=== PATIENT | male | born 1950 | race Caucasian/White ===

== ENCOUNTER 2018-08-28 14:38 | Emergency (ER) | payer MEDICARE ==
[2018-08-28 14:52] VITALS: RESP 18; TEMP 98.6
[2018-08-28] MEDS ORDERED: SODIUM CHLORIDE 0.9% 1,000 ML IV STA (15:02)
--- NOTE | 2018-08-28 15:03 | ED ---
Arrhythmia/Palpitations HPI - General Chief Complaint: Arrhythmia/Palpitations Stated Complaint: Hypertension, high heart rate Time Seen by Provider: 08/28/18 15:00 Source: patient, RN notes reviewed, old records reviewed Mode of arrival: ambulatory Limitations: no limitations - History of Present Illness Initial Comments: This is a 59-year-old male the ER for evaluation. Patient has no significant medical record he does take his vital signs multiple times on the daily once a day. Patient states recently his heart rate and blood pressure been increasing. Otherwise patient has no complaints takes no medications MD Complaint: palpitations -: days(s) Context: occurred during rest Arrhythmia History: atrial fibrillation Associated Symptoms: denies other symptoms - Related Data Home Medications Medication Instructions Recorded Confirmed Albuterol Inhaler [Ventolin Hfa 1 - 2 puff INHALATION RT-Q6H PRN 08/28/18 Inhaler] Cholecalciferol [Vitamin D3] 1,000 unit PO DAILY 08/28/18 08/28/18 Cyanocobalamin (Vitamin B-12) 1,000 mcg PO DAILY 08/28/18 08/28/18 [Vitamin B-12] Mometasone Furoate [Elocon] 1 applic TOPICAL DAILY PRN 08/28/18 08/28/18 Mometasone/Formoterol [Dulera 200 1 puff INHALATION RT-DAILY 08/28/18 08/28/18 Mcg/5 Mcg Inhaler] Omeprazole [PriLOSEC] 20 mg PO DAILY 08/28/18 08/28/18 Allergies Allergy/AdvReac Type Severity Reaction Status Date / Time cat dander Allergy Dyspnea Verified 08/28/18 16:19 dog dander Allergy Dyspnea Verified 08/28/18 16:19 Review of Systems ROS Statement: Those systems with pertinent positive or pertinent negative responses have been documented in the HPI. ROS Other: All systems not noted in ROS Statement are negative. Past Medical History Past Medical History: Asthma, GERD/Reflux Additional Past Medical History / Comment(s): barrets esophagus History of Any Multi-Drug Resistant Organisms: None Reported Past Surgical History: Hernia Repair Past Psychological History: No Psychological Hx Reported Smoking Status: Former smoker Past Alcohol Use History: None Reported Past Drug Use History: None Reported General Exam Limitations: no limitations General appearance: alert, in no apparent distress Head exam: Present: atraumatic, normocephalic, normal inspection Eye exam: Present: normal appearance, PERRL, EOMI. Absent: scleral icterus, conjunctival injection, periorbital swelling ENT exam: Present: normal exam, mucous membranes moist Neck exam: Present: normal inspection. Absent: tenderness, meningismus, lymphadenopathy Respiratory exam: Present: normal lung sounds bilaterally. Absent: respiratory distress, wheezes, rales, rhonchi, stridor Cardiovascular Exam: Present: regular rate, normal rhythm, normal heart sounds. Absent: systolic murmur, diastolic murmur, rubs, gallop, clicks GI/Abdominal exam: Present: soft, normal bowel sounds. Absent: distended, tenderness, guarding, rebound, rigid Extremities exam: Present: normal inspection, full ROM, normal capillary refill. Absent: tenderness, pedal edema, joint swelling, calf tenderness Back exam: Present: normal inspection Neurological exam: Present: alert, oriented X3, CN II-XII intact Psychiatric exam: Present: normal affect, normal mood Skin exam: Present: warm, dry, intact, normal color. Absent: rash Course Vital Signs 08/28/18 08/28/18 08/28/18 14:49 15:06 15:18 Temperature 98.6 F Pulse Rate 102 H Pulse Rate [ 86 Right Sitting Pulse Oximetery ] Respiratory 18 Rate Blood Pressure 194/85 O2 Sat by Pulse 97 90 L Oximetry 08/28/18 08/28/18 15:30 16:00 Temperature Pulse Rate 82 74 Pulse Rate [ Right Sitting Pulse Oximetery ] Respiratory 18 18 Rate Blood Pressure 187/94 135/83 O2 Sat by Pulse 97 96 Oximetry - Reevaluation(s) Reevaluation #1: 08/28/18 16:58 Medical record is reviewed, patient's outpatient blood pressures are reviewed Reevaluation #2: 08/28/18 16:58 Patient has no complaints, reassured, questions answered Medical Decision Making - Medical Decision Making 67 male with positive elevated heart rate elevated blood pressure home. Patient 's findings improved here in the emergency room with no intervention. Labwork is normal patient can be discharged home - Lab Data Result diagrams: 08/28/18 15:15 08/28/18 15:15 Lab Results 08/28/18 08/28/18 08/28/18 Range/Units 15:15 15:15 15:15 WBC 7.3 (3.8-10.6) k/uL RBC 4.88 (4.30-5.90) m/uL Hgb 14.5 (13.0-17.5) gm/dL Hct 44.5 (39.0-53.0) % MCV 91.3 (80.0-100.0) fL MCH 29.8 (25.0-35.0) pg MCHC 32.6 (31.0-37.0) g/dL RDW 13.0 (11.5-15.5) % Plt Count 229 (150-450) k/uL Neutrophils % 76 % Lymphocytes % 16 % Monocytes % 5 % Eosinophils % 1 % Basophils % 0 % Neutrophils # 5.5 (1.3-7.7) k/uL Lymphocytes # 1.1 (1.0-4.8) k/uL Monocytes # 0.4 (0-1.0) k/uL Eosinophils # 0.1 (0-0.7) k/uL Basophils # 0.0 (0-0.2) k/uL Sodium 141 (137-145) mmol/L Potassium 4.6 (3.5-5.1) mmol/L Chloride 108 H (98-107) mmol/L Carbon Dioxide 24 (22-30) mmol/L Anion Gap 9 mmol/L BUN 17 (9-20) mg/dL Creatinine 0.98 (0.66-1.25) mg/dL Est GFR (CKD-EPI)AfAm >90 (>60 ml/min/1.73 sqM) Est GFR (CKD-EPI)NonAf 80 (>60 ml/min/1.73 sqM) Glucose 121 H (74-99) mg/dL Calcium 10.0 (8.4-10.2) mg/dL Phosphorus 3.5 (2.5-4.5) mg/dL Magnesium 2.2 (1.6-2.3) mg/dL Total Bilirubin 0.6 (0.2-1.3) mg/dL AST 34 (17-59) U/L ALT 34 (21-72) U/L Alkaline Phosphatase 74 (38-126) U/L Total Creatine Kinase 305 H (55-170) U/L CK-MB (CK-2) 1.1 (0.0-2.4) ng/mL CK-MB (CK-2) Rel Index 0.4 Troponin I <0.012 (0.000-0.034) ng/mL Total Protein 7.8 (6.3-8.2) g/dL Albumin 4.6 (3.5-5.0) g/dL TSH 2.990 (0.465-4.680) mIU/L Disposition Clinical Impression: Tachycardia, Hypertension Disposition: HOME SELF-CARE Condition: Good Instructions (If sedation given, give patient instructions): Heart Palpitations (ED) Is patient prescribed a controlled substance at d/c from ED?: No Referrals: Hanna Kerr MD [Primary Care Provider] - 1-2 days
[2018-08-28 15:43] LABS: Basophils % (A) 0 %; Eosinophils # (A) 0.1 k/uL (0-0.7); Eosinophils % (A) 1 %; HCT 44.5 % (39.0-53.0); HGB 14.5 gm/dL (13.0-17.5); Lymphocytes # (A) 1.1 k/uL (1.0-4.8); Lymphocytes % (A) 16 %; MCH 29.8 pg (25.0-35.0); MCHC 32.6 g/dL (31.0-37.0); MCV 91.3 fL (80.0-100.0); Mean Platelet Volume 7.3; Monocytes # (A) 0.4 k/uL (0-1.0); Monocytes % (A) 5 %; Neutrophils # (A) 5.5 k/uL (1.3-7.7); Neutrophils % (A) 76 %; Platelet Count 229 k/uL (150-450); RBC 4.88 m/uL (4.30-5.90); WBC 7.3 k/uL (3.8-10.6)
[2018-08-28 15:51] LABS: ALT 34 U/L (21-72); AST 34 U/L (17-59); Albumin 4.6 g/dL (3.5-5.0); Alkaline Phosphatase 74 U/L (38-126); Anion Gap 9 mmol/L; Blood Urea Nitrogen 17 mg/dL (9-20); Carbon Dioxide 24 mmol/L (22-30); Chloride 108 mmol/L (98-107); Glucose 121 mg/dL (74-99); Magnesium 2.2 mg/dL (1.6-2.3); Phosphorus 3.5 mg/dL (2.5-4.5); Potassium 4.6 mmol/L (3.5-5.1); Sodium 141 mmol/L (137-145); Total Bilirubin 0.6 mg/dL (0.2-1.3); Total Protein 7.8 g/dL (6.3-8.2)
[2018-08-28 15:56] LABS: Creatine Kinase 305 U/L (55-170)
[2018-08-28 16:09] LABS: Creatine Kinase MB 1.1 ng/mL (0.0-2.4); Troponin I <0.012 ng/mL (0.000-0.034)
[2018-08-28 16:58] LABS: Appearance,Urine Clear (Clear); Bilirubin,Urine Negative (Negative); Blood,Urine Small (Negative); Color,Urine Light Yellow; Glucose,Urine (UA) Negative (Negative); Ketones,Urine Negative (Negative); Leukocyte Esterase,Urine Negative (Negative); Mucus,Urine Rare /hpf; Nitrite,Urine Negative (Negative); Protein,Urine Negative (Negative); RBC,Urine 3 /hpf (0-5); Specific Gravity,Urine 1.013 (1.001-1.035); Urobilinogen,Urine <2.0 mg/dL (<2.0); WBC,Urine <1 /hpf (0-5)
[2018-08-28 17:32] VITALS: BP 167/89; PULSE 67
== END 2018-08-28 17:30 | disposition home or self-care (01) ==
LOC: EC 14:38
DX: I10 Essential (primary) hypertension (principal); R00.0 Tachycardia, unspecified; J45.909 Unspecified asthma, uncomplicated; K21.9 Gastro-esophageal reflux disease without esophagitis; Z87.891 Personal history of nicotine dependence; Z86.79 Personal history of other diseases of the circulatory system; Z98.890 Other specified postprocedural states; Z79.51 Long term (current) use of inhaled steroids; Z79.899 Other long term (current) drug therapy; Z91.048 Other nonmedicinal substance allergy status
CPT/HCPCS: 36415; 80053; 81001; 82550; 82553; 83735; 84100; 84443; 84484; 85025; 93005; 96360; 99285

== ENCOUNTER 2018-09-11 14:04 | Observation (INO) | payer MEDICARE ==
[2018-09-11 14:56] LABS: Basophils % (A) 0 %; Eosinophils # (A) 0.1 k/uL (0-0.7); Eosinophils % (A) 1 %; HGB 14.3 gm/dL (13.0-17.5); Lymphocytes # (A) 0.9 k/uL (1.0-4.8); Lymphocytes % (A) 12 %; MCH 29.6 pg (25.0-35.0); MCHC 32.5 g/dL (31.0-37.0); MCV 91.1 fL (80.0-100.0); Mean Platelet Volume 6.9; Monocytes # (A) 0.4 k/uL (0-1.0); Monocytes % (A) 5 %; Neutrophils # (A) 6.3 k/uL (1.3-7.7); Neutrophils % (A) 81 %; Platelet Count 232 k/uL (150-450); RBC 4.83 m/uL (4.30-5.90); WBC 7.8 k/uL (3.8-10.6)
[2018-09-11 15:06] LABS: ALT 31 U/L (21-72); AST 33 U/L (17-59); Albumin 4.4 g/dL (3.5-5.0); Alkaline Phosphatase 70 U/L (38-126); Anion Gap 10 mmol/L; Blood Urea Nitrogen 18 mg/dL (9-20); Calcium 9.9 mg/dL (8.4-10.2); Carbon Dioxide 23 mmol/L (22-30); Chloride 108 mmol/L (98-107); Glucose 143 mg/dL (74-99); Partial Thromboplastin Time 23.3 sec (22.0-30.0); Potassium 4.3 mmol/L (3.5-5.1); Prothrombin Time 10.3 sec (9.0-12.0); Sodium 141 mmol/L (137-145); Total Bilirubin 0.5 mg/dL (0.2-1.3); Total Protein 7.7 g/dL (6.3-8.2)
[2018-09-11 15:16] LABS: Creatine Kinase 260 U/L (55-170)
[2018-09-11 15:29] LABS: Troponin I <0.012 ng/mL (0.000-0.034)
[2018-09-11] MEDS ORDERED: hydrALAZINE HCL 20 MG/ML 1 ML VIAL IVP STA (15:37)
--- NOTE | 2018-09-11 16:04 | XR ---
EXAMINATION TYPE: XR chest 2V DATE OF EXAM: 09/11/2018 COMPARISON: NONE HISTORY: Shortness of breath TECHNIQUE: Frontal and lateral views of the chest are obtained. FINDINGS: Scattered senescent parenchymal changes noted. Hyperinflation compatible with COPD. No evidence for infiltrate. No evidence for atelectasis. Heart size is stable. Mediastinal structures are stable and grossly unremarkable. No evidence for hilar prominence. Degenerative changes dorsal spine. IMPRESSION: 1. No evidence for acute pulmonary disease.
--- NOTE | 2018-09-11 16:35 | ED ---
General Adult HPI - General Source: patient, RN notes reviewed, old records reviewed Mode of arrival: wheelchair Limitations: no limitations <Padmini Niño - Last Filed: 09/11/18 16:38> <Flash Finnegan - Last Filed: 09/11/18 17:47> - General Chief complaint: Arrhythmia/Palpitations Stated complaint: High heart rate Time Seen by Provider: 09/11/18 14:59 - History of Present Illness Initial comments: Patient is a 59-year-old male who presents emergency department today with complaints of chest discomfort upper arm discomfort and high heart rate. He also reports she's had a labile blood pressure. Blood pressure at home has been 210/97. He states that he discovered that discomfort across his chest today. He does report increased fatigue as well. Patient states that he has not seen a crocheter hand in the past. He has no history of hypertension. Patient denies any recent fever, chills, shortness of breath, back pain, abdominal pain, nausea vomiting, numbness or tingling, dysuria or hematuria, constipation or diarrhea, headaches or visual changes, or any other current symptoms (Padmini Niño) - Related Data Home Medications Medication Instructions Recorded Confirmed Albuterol Inhaler [Ventolin Hfa 1 - 2 puff INHALATION RT-Q6H PRN 08/28/18 Inhaler] Cholecalciferol [Vitamin D3] 1,000 unit PO DAILY 08/28/18 09/11/18 Cyanocobalamin (Vitamin B-12) 1,000 mcg PO DAILY 08/28/18 09/11/18 [Vitamin B-12] Mometasone Furoate [Elocon] 1 applic TOPICAL DAILY PRN 08/28/18 09/11/18 Mometasone/Formoterol [Dulera 200 1 puff INHALATION RT-DAILY 08/28/18 09/11/18 Mcg/5 Mcg Inhaler] Omeprazole [PriLOSEC] 20 mg PO DAILY 08/28/18 09/11/18 Calcium Carbonate [Tums] 500 mg PO QID PRN 09/11/18 09/11/18 EPINEPHrine [Epipen 2-Jed] 0.3 mg IM ONCE PRN 09/11/18 09/11/18 Ibuprofen [Advil] 200 mg PO Q6HR PRN 09/11/18 09/11/18 Allergies Allergy/AdvReac Type Severity Reaction Status Date / Time cat dander Allergy Dyspnea Verified 09/11/18 14:40 dog dander Allergy Dyspnea Verified 09/11/18 14:40 Review of Systems ROS Other: All systems not noted in ROS Statement are negative. <Padmini Niño - Last Filed: 09/11/18 16:38> ROS Other: All systems not noted in ROS Statement are negative. <Flash Finnegan - Last Filed: 09/11/18 17:47> ROS Statement: Those systems with pertinent positive or pertinent negative responses have been documented in the HPI. 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 History of Any Multi-Drug Resistant Organisms: None Reported Past Surgical History: Hernia Repair Past Psychological History: No Psychological Hx Reported Smoking Status: Former smoker Past Alcohol Use History: None Reported Past Drug Use History: None Reported <Padmini Niño - Last Filed: 09/11/18 16:38> General Exam Limitations: no limitations General appearance: alert, in no apparent distress Head exam: Present: atraumatic, normocephalic, normal inspection Eye exam: Present: normal appearance, PERRL, EOMI. Absent: scleral icterus, conjunctival injection, periorbital swelling ENT exam: Present: normal exam, mucous membranes moist Neck exam: Present: normal inspection. Absent: tenderness, meningismus, lymphadenopathy Respiratory exam: Present: normal lung sounds bilaterally. Absent: respiratory distress, wheezes, rales, rhonchi, stridor Cardiovascular Exam: Present: regular rate, normal rhythm, normal heart sounds. Absent: systolic murmur, diastolic murmur, rubs, gallop, clicks GI/Abdominal exam: Present: soft, normal bowel sounds. Absent: distended, tenderness, guarding, rebound, rigid Extremities exam: Present: normal inspection, full ROM, normal capillary refill. Absent: tenderness, pedal edema, joint swelling, calf tenderness Back exam: Present: normal inspection Neurological exam: Present: alert, oriented X3, CN II-XII intact Psychiatric exam: Present: normal affect, normal mood Skin exam: Present: warm, dry, intact, normal color. Absent: rash <Padmini Niño - Last Filed: 09/11/18 16:38> <Flash Finnegan - Last Filed: 09/11/18 17:47> - General Exam Comments Initial Comments: This Patient is a 59-year-old male. Alert and oriented 3. No significant distress. (Padmini Niño) Course <Padmini Niño - Last Filed: 09/11/18 16:38> <Flash Finnegan - Last Filed: 09/11/18 17:47> Vital Signs 09/11/18 09/11/18 09/11/18 14:08 14:32 15:24 Temperature 98.5 F Pulse Rate 109 H 89 Pulse Rate [ 104 H Wide Load Escort ] Respiratory 18 18 Rate Blood Pressure 181/94 161/93 O2 Sat by Pulse 99 96 Oximetry 09/11/18 09/11/18 16:07 16:53 Temperature Pulse Rate 82 100 Pulse Rate [ Wide Load Escort ] Respiratory 18 18 Rate Blood Pressure 151/85 146/93 O2 Sat by Pulse 98 97 Oximetry - Reevaluation(s) Reevaluation #1: 09/11/18 17:46 PA supervision: I proceeded [id number] evaluation the patient discuss findings patient does demonstrate evidence of hypertension he also has chest pain with no prior history of CAD. Initial cardiac enzymes are within normal limits. Patient is going to be admitted for inpatient evaluation. The case is discussed with Dr. Villasenor. I do agree with the assessment and plan. (Flash Finnegan) Medical Decision Making - Lab Data Result diagrams: 09/11/18 14:34 09/11/18 14:34 - Radiology Data Radiology results: report reviewed <Padmini Niño - Last Filed: 09/11/18 16:38> - Lab Data Result diagrams: 09/11/18 14:34 09/11/18 14:34 <Flash Finnegan - Last Filed: 09/11/18 17:47> - Medical Decision Making 59-year-old male presents return today with concerns for hypertension. He is had an episode similar to this 2 weeks ago. He is also reports that he's had episodes of chest discomfort today. The sinus EKG was performed that shows a ST and amount in lead 3. Patient's troponin test is negative. Dimer is negative. There are since labwork is unremarkable. Patient's blood pressure upon arrival was elevated. However and blood pressure came down on its own without any medical intervention. At this time Patient is concerned due to his chest discomfort and I discussed that can admit the Patient for cardiac evaluation. Patient is given aspirin. (Padmini Niño) - Lab Data Lab Results 09/11/18 09/11/18 09/11/18 Range/Units 14:34 14:34 14:34 WBC 7.8 (3.8-10.6) k/uL RBC 4.83 (4.30-5.90) m/uL Hgb 14.3 (13.0-17.5) gm/dL Hct 44.0 (39.0-53.0) % MCV 91.1 (80.0-100.0) fL MCH 29.6 (25.0-35.0) pg MCHC 32.5 (31.0-37.0) g/dL RDW 13.0 (11.5-15.5) % Plt Count 232 (150-450) k/uL Neutrophils % 81 % Lymphocytes % 12 % Monocytes % 5 % Eosinophils % 1 % Basophils % 0 % Neutrophils # 6.3 (1.3-7.7) k/uL Lymphocytes # 0.9 L (1.0-4.8) k/uL Monocytes # 0.4 (0-1.0) k/uL Eosinophils # 0.1 (0-0.7) k/uL Basophils # 0.0 (0-0.2) k/uL PT (9.0-12.0) sec INR (<1.2) APTT (22.0-30.0) sec D-Dimer (<0.60) mg/L FEU Sodium 141 (137-145) mmol/L Potassium 4.3 (3.5-5.1) mmol/L Chloride 108 H (98-107) mmol/L Carbon Dioxide 23 (22-30) mmol/L Anion Gap 10 mmol/L BUN 18 (9-20) mg/dL Creatinine 0.93 (0.66-1.25) mg/dL Est GFR (CKD-EPI)AfAm >90 (>60 ml/min/1.73 sqM) Est GFR (CKD-EPI)NonAf 84 (>60 ml/min/1.73 sqM) Glucose 143 H (74-99) mg/dL Calcium 9.9 (8.4-10.2) mg/dL Total Bilirubin 0.5 (0.2-1.3) mg/dL AST 33 (17-59) U/L ALT 31 (21-72) U/L Alkaline Phosphatase 70 (38-126) U/L Total Creatine Kinase 260 H (55-170) U/L CK-MB (CK-2) 1.0 (0.0-2.4) ng/mL CK-MB (CK-2) Rel Index 0.4 Troponin I <0.012 (0.000-0.034) ng/mL Total Protein 7.7 (6.3-8.2) g/dL Albumin 4.4 (3.5-5.0) g/dL Urine Color Urine Appearance (Clear) Urine pH (5.0-8.0) Ur Specific [place] (1.001-1.035) Urine Protein (Negative) Urine Glucose (UA) (Negative) Urine Ketones (Negative) Urine Blood (Negative) Urine Nitrite (Negative) Urine Bilirubin (Negative) Urine Urobilinogen (<2.0) mg/dL Ur Leukocyte Esterase (Negative) Urine RBC (0-5) /hpf Urine WBC (0-5) /hpf Urine Mucus (None) /hpf 09/11/18 09/11/18 09/11/18 Range/Units 14:34 14:34 16:03 WBC (3.8-10.6) k/uL RBC (4.30-5.90) m/uL Hgb (13.0-17.5) gm/dL Hct (39.0-53.0) % MCV (80.0-100.0) fL MCH (25.0-35.0) pg MCHC (31.0-37.0) g/dL RDW (11.5-15.5) % Plt Count (150-450) k/uL Neutrophils % % Lymphocytes % % Monocytes % % Eosinophils % % Basophils % % Neutrophils # (1.3-7.7) k/uL Lymphocytes # (1.0-4.8) k/uL Monocytes # (0-1.0) k/uL Eosinophils # (0-0.7) k/uL Basophils # (0-0.2) k/uL PT 10.3 (9.0-12.0) sec INR 1.0 (<1.2) APTT 23.3 (22.0-30.0) sec D-Dimer 0.23 (<0.60) mg/L FEU Sodium (137-145) mmol/L Potassium (3.5-5.1) mmol/L Chloride (98-107) mmol/L Carbon Dioxide (22-30) mmol/L Anion Gap mmol/L BUN (9-20) mg/dL Creatinine (0.66-1.25) mg/dL Est GFR (CKD-EPI)AfAm (>60 ml/min/1.73 sqM) Est GFR (CKD-EPI)NonAf (>60 ml/min/1.73 sqM) Glucose (74-99) mg/dL Calcium (8.4-10.2) mg/dL Total Bilirubin (0.2-1.3) mg/dL AST (17-59) U/L ALT (21-72) U/L Alkaline Phosphatase (38-126) U/L Total Creatine Kinase (55-170) U/L CK-MB (CK-2) (0.0-2.4) ng/mL CK-MB (CK-2) Rel Index Troponin I (0.000-0.034) ng/mL Total Protein (6.3-8.2) g/dL Albumin (3.5-5.0) g/dL Urine Color Light Yellow Urine Appearance Clear (Clear) Urine pH 6.5 (5.0-8.0) Ur Specific [place] 1.012 (1.001-1.035) Urine Protein Negative (Negative) Urine Glucose (UA) Negative (Negative) Urine Ketones Negative (Negative) Urine Blood Small H (Negative) Urine Nitrite Negative (Negative) Urine Bilirubin Negative (Negative) Urine Urobilinogen <2.0 (<2.0) mg/dL Ur Leukocyte Esterase Negative (Negative) Urine RBC 2 (0-5) /hpf Urine WBC 1 (0-5) /hpf Urine Mucus Rare H (None) /hpf 09/11/18 16:40 EKG performed at 1435 to sinus tachycardia, nonspecific ST abnormality. Abnormal EKG noted. Ventricular rate of 108 bpm. NV interval 160 ms. QRS duration is 90 ms. QT QTc is 324/434 ms. (Padmini Niño) - Radiology Data Chest x-ray is negative for any acute cardio pulmonary disease. (Padmini Niño ) Disposition Is patient prescribed a controlled substance at d/c from ED?: No Time of Disposition: 16:42 <Padmini Niño - Last Filed: 09/11/18 16:38> <Flash Finnegan - Last Filed: 09/11/18 17:47> Clinical Impression: Hypertension, Tachycardia, Chest pain Disposition: ADMITTED IP TO THIS HOSP Condition: Stable Referrals: Hanna Kerr MD [Primary Care Provider] - 1-2 days
[2018-09-11] MEDS ORDERED: ASPIRIN 81 MG PO STA (16:43)
[2018-09-11] MEDS ORDERED: NITROGLYCERIN SL TABS 0.4 MG TAB SUBLINGUAL PRN (16:43)
[2018-09-11 16:50] LABS: Appearance,Urine Clear (Clear); Bilirubin,Urine Negative (Negative); Blood,Urine Small (Negative); Color,Urine Light Yellow; Glucose,Urine (UA) Negative (Negative); Ketones,Urine Negative (Negative); Leukocyte Esterase,Urine Negative (Negative); Mucus,Urine Rare /hpf; Nitrite,Urine Negative (Negative); PH, Urine 6.5 (5.0-8.0); Protein,Urine Negative (Negative); RBC,Urine 2 /hpf (0-5); Specific Gravity,Urine 1.012 (1.001-1.035); Urobilinogen,Urine <2.0 mg/dL (<2.0); WBC,Urine 1 /hpf (0-5)
[2018-09-11] MEDS ORDERED: TRIAMCINOLONE 0.1% CREAM 80 GM TUBE TOPICAL PRN (18:05)
[2018-09-11] MEDS ORDERED: ALBUTEROL NEBULIZED 2.5 MG/3 ML INHALATION PRN (18:05)
[2018-09-11] MEDS ORDERED: IBUPROFEN 200 MG TAB PO PRN (18:05)
[2018-09-11] MEDS ORDERED: EPINEPHrine 1 MG/ML 1 ML AMP IM PRN (18:05)
--- NOTE | 2018-09-11 18:11 | P.HPIM ---
History of Present Illness 59-year-old gentleman came in because of his elevated blood pressures he checks his blood pressure and it was 210/97. Lately his blood pressure has been going up he attributes it to his pneumococcal vaccine. Before that vaccine his blood pressure is always around 120 systolic. An not diagnosed with essential hypertension in the past. Lately his blood pressure has been going up. Patient was also complaining of vague chest pain across the chest because of which the emergency room requested me to admit the patient although the chest pain is not related to her blood pressure and patient blood pressure ranged here from 180 systolic to 140 systolic because of which I do not believe he has essential hypertension yet patient will be monitored here overnight and if patient blood pressure is consistently elevated above 140 systolic patient will be started on medications most probably COREY inhibitor at that time. Regarding the chest pain patient chest pain is only brief not associated diaphoresis or shortness of breath lightheadedness across the chest area he believes it's like a slow skeletal. Review of Systems REVIEW OF SYSTEMS: CONSTITUTIONAL: No fever, no malaise, no fatigue. HEENT: No recent visual problems or hearing problems. Denied any sore throat. CARDIOVASCULAR: No orthopnea, PND, no palpitations, no syncope. PULMONARY: No shortness of breath, no cough, no hemoptysis. GASTROINTESTINAL: No diarrhea, no nausea, no vomiting, no abdominal pain. NEUROLOGICAL: No headaches, no weakness, no numbness. HEMATOLOGICAL: Denies any bleeding or petechiae. GENITOURINARY: Denies any burning micturition, frequency, or urgency. MUSCULOSKELETAL/RHEUMATOLOGICAL: Denies any joint pain, swelling, or any muscle pain. ENDOCRINE: Denies any polyuria or polydipsia. The rest of the 14-point review of systems is negative. 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 History of Any Multi-Drug Resistant Organisms: None Reported Past Surgical History: Hernia Repair Past Psychological History: No Psychological Hx Reported Smoking Status: Former smoker Past Alcohol Use History: None Reported Past Drug Use History: None Reported Medications and Allergies Home Medications Medication Instructions Recorded Confirmed Type Albuterol Inhaler [Ventolin Hfa 1 - 2 puff INHALATION RT-Q6H PRN 08/28/18 History Inhaler] Cholecalciferol [Vitamin D3] 1,000 unit PO DAILY 08/28/18 09/11/18 History Cyanocobalamin (Vitamin B-12) 1,000 mcg PO DAILY 08/28/18 09/11/18 History [Vitamin B-12] Mometasone Furoate [Elocon] 1 applic TOPICAL DAILY PRN 08/28/18 09/11/18 History Mometasone/Formoterol [Dulera 200 1 puff INHALATION RT-DAILY 08/28/18 09/11/18 History Mcg/5 Mcg Inhaler] Omeprazole [PriLOSEC] 20 mg PO DAILY 08/28/18 09/11/18 History Calcium Carbonate [Tums] 500 mg PO QID PRN 09/11/18 09/11/18 History EPINEPHrine [Epipen 2-Jed] 0.3 mg IM ONCE PRN 09/11/18 09/11/18 History Ibuprofen [Advil] 200 mg PO Q6HR PRN 09/11/18 09/11/18 History Allergies Allergy/AdvReac Type Severity Reaction Status Date / Time cat dander Allergy Dyspnea Verified 09/11/18 14:40 dog dander Allergy Dyspnea Verified 09/11/18 14:40 Physical Exam Vitals: Vital Signs Temp Pulse Pulse Resp BP Pulse Ox 09/11/18 16:53 100 18 146/93 97 09/11/18 16:07 82 18 151/85 98 09/11/18 15:24 89 18 161/93 96 09/11/18 14:32 104 H 09/11/18 14:08 98.5 F 109 H 18 181/94 99 Intake and Output 09/11/18 09/11/18 09/11/18 06:59 14:59 22:59 Other: Weight 74.843 kg PHYSICAL EXAMINATION: GENERAL: The patient is alert and oriented x3, not in any acute distress. Well developed, well nourished. HEENT: Pupils are round and equally reacting to light. EOMI. No scleral icterus. No conjunctival pallor. Normocephalic, atraumatic. No pharyngeal erythema. No thyromegaly. CARDIOVASCULAR: S1 and S2 present. No murmurs, rubs, or gallops. PULMONARY: Chest is clear to auscultation, no wheezing or crackles. ABDOMEN: Soft, nontender, nondistended, normoactive bowel sounds. No palpable organomegaly. MUSCULOSKELETAL: No joint swelling or deformity. EXTREMITIES: No cyanosis, clubbing, or pedal edema. NEUROLOGICAL: Gross neurological examination did not reveal any focal deficits. SKIN: No rashes. Results CBC & Chem 7: 09/11/18 14:34 09/11/18 14:34 Labs: Abnormal Lab Results - Last 24 Hours (Table) 09/11/18 09/11/18 09/11/18 Range/Units 14:34 14:34 14:34 Lymphocytes # 0.9 L (1.0-4.8) k/uL Chloride 108 H (98-107) mmol/L Glucose 143 H (74-99) mg/dL Total Creatine Kinase 260 H (55-170) U/L Urine Blood (Negative) Urine Mucus (None) /hpf 09/11/18 Range/Units 16:03 Lymphocytes # (1.0-4.8) k/uL Chloride (98-107) mmol/L Glucose (74-99) mg/dL Total Creatine Kinase (55-170) U/L Urine Blood Small H (Negative) Urine Mucus Rare H (None) /hpf Assessment and Plan Plan: -Chest pain we'll rule out a concurrent syndromes, unstable angina patient EKG showed sinus tachycardia without any acute ST-T wave changes. Patient will be monitored overnight area -Elevated blood pressure: Cannot make diagnosis of essential hypertension yet as his blood pressure once is 140 systolic. The patient the blood pressures consistently above 140 systolic or 85 diastolic then patient was started on antihypertensive medications at the time. As of now will just monitor. -Sinus tachycardia appears to be secondary to his anxiety, will obtain TSH level his d-dimer is negative -Asthma without any acute exacerbation resume his inhaled steroids and [place] as needed -Gastroesophageal reflux disease
[2018-09-11 22:11] LABS: Creatine Kinase 227 U/L (55-170)
[2018-09-11 22:25] LABS: Creatine Kinase MB 0.9 ng/mL (0.0-2.4); Troponin I <0.012 ng/mL (0.000-0.034)
[2018-09-12 03:24] LABS: Cholesterol 153 mg/dL (<200); HDL Cholesterol 56 mg/dL (40-60); LDL Cholesterol,Calculated 83 mg/dL (0-99); Triglycerides 70 mg/dL (<150)
[2018-09-12 03:30] LABS: Creatine Kinase 204 U/L (55-170)
[2018-09-12 03:44] LABS: Creatine Kinase MB 0.7 ng/mL (0.0-2.4); Troponin I <0.012 ng/mL (0.000-0.034)
[2018-09-12] MEDS ORDERED: PANTOPRAZOLE 40 MG TABLET PO SCH (07:30)
[2018-09-12 07:38] VITALS: RESP 18
[2018-09-12] MEDS ORDERED: SYMBICORT 160-4.5 MCG INHALER INHALATION SCH (08:00)
[2018-09-12] MEDS ORDERED: ASPIRIN 325 MG TAB PO SCH (09:00)
[2018-09-12] MEDS ORDERED: LISINOPRIL 10 MG TAB PO SCH (10:00)
--- NOTE | 2018-09-12 10:01 | P.CRDCN ---
History of Present Illness History of present illness: This is a pleasant 67-year-old male past medical history significant for nelson's esophagus, asthma and gastroesophageal reflux disease. He denies history of coronary artery disease, hypertension or dyslipidemia. We have been asked to see him in consultation for chest pain and hypertension. He states he has been monitoring his blood pressure daily for some time now and keeping a record. Over the last month his blood pressures have been elevated along with his heart rate. His blood pressure logs were reviewed and reveal readings of 140 's up to 200's systolic at times. He checked it yesterday at home and it was 207 /110. All day he has been feeling generally unwell and tired. He then started feeling a pain in his chest from right axilla to left axilla described as a tightening. He then started having a headache posteriorly at the base of his neck. Upon arrival to ED his blood pressure was 181/94 with a heart rate of 109. He is seen and examined resting comfortably in bed in no acute distress. He denies any further symptoms of chest discomfort. He indicates he underwent a stress test in 2017 that he states was normal. Records currently unavailable. EKG reveals sinus tachycardia with no acute ST or T wave abnormalities noted. Chest x-ray is negative for an acute cardiopulmonary process. Evidence of hyperinflation suggestive of COPD. Laboratory data reviewed, WBC 7.8, hemoglobin 14.3, platelets 232, d-dimer 0.23 , sodium 141, potassium 4.3, creatinine 0.93, cardiac enzymes negative 3, TSH 3.4, LDL 83 and HDL 56. He takes no daily cardiac medications. At the time of my exam: CONSTITUTIONAL: Denies fever. Denies chills. EYES: Denies blurred vision. Denies vision changes. Denies eye pain. EARS, NOSE, MOUTH & THROAT: Denies headache. Denies sore throat. Denies ear pain. CARDIOVASCULAR: Denies chest pain. Denies shortness of breath. Denies orthopnea. Denies PND. Denies palpitations. RESPIRATORY: Denies cough. GASTROINTESTINAL: Denies abdominal pain. Denies diarrhea. Denies constipation. Denies nausea. Denies vomiting. MUSCULOSKELETAL: Denies myalgias. INTEGUMENTARY: Denies pruitis. Denies rash. NEUROLOGIC: Denies numbness. Denies tingling. Denies weakness. PSYCHIATRIC: Denies anxiety. Denies depression. ENDOCRINE: Denies fatigue. Denies weight change. Denies polydipsia. Denies polyurina. GENITOURINARY: Denies burning, hematuria or urgency with micturation. HEMATOLOGIC: Denies history of anemia. Denies bleeding. Blood pressure 146/82 heart rate 70 afebrile maintaining oxygen saturation on room air GENERAL: This is a 67-year-old male in no apparent distress at the time of my examination. HEENT: Head is atraumatic, normocephalic. Pupils are equal, round. Sclerae anicteric. Conjunctivae are clear. Mucous membranes of the mouth are moist. Neck is supple. There is no jugular venous distention. No carotid bruit is heard. LUNGS: Clear to auscultation no wheezes, rales or rhonchi. No chest wall tenderness is noted on palpation or with deep breathing. HEART: Regular rate and rhythm without murmurs, rubs or gallops. S1 and S2 heard. ABDOMEN: Soft, nontender. Bowel sounds are heard. No organomegaly noted. EXTREMITIES: No evidence of peripheral edema and no calf tenderness noted. VASCULAR: Radial and dorsalis pedis pulses palpated, no evidence of clubbing. NEUROLOGIC: Patient is awake, alert and oriented x3. ASSESSMENT Chest pain, atypical for angina. An acute event has been ruled out. Hypertension, new onset Asthma PLAN Obtain 2-D echocardiogram and Doppler study to assess cardiac structure and function. Initiate the patient on lisinopril 10 mg twice a day first dose now. May consider adding amlodipine 10 mg daily if his blood pressure is not controlled on lisinopril. We will recommend stress testing as an outpatient once his blood pressure is controlled. Thank you kindly for this consultation. The above impression and plan of care have been discussed and directed by the signing physician. Caitlyn Devine, nurse practitioner, acting as scribe for signing physician. 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 History of Any Multi-Drug Resistant Organisms: None Reported Past Surgical History: Hernia Repair Past Anesthesia/Blood Transfusion Reactions: No Reported Reaction Smoking Status: Former smoker - Past Family History Father Family Medical History: Coronary Artery Disease (CAD) Additional Family Medical History / Comment(s): twisted bowel surg, circulation issues Mother Family Medical History: Cancer, Hypertension Additional Family Medical History / Comment(s): skin ca Medications and Allergies Home Medications Medication Instructions Recorded Confirmed Type Albuterol Inhaler [Ventolin Hfa 1 - 2 puff INHALATION RT-Q6H PRN 08/28/18 History Inhaler] Cholecalciferol [Vitamin D3] 1,000 unit PO DAILY 08/28/18 09/11/18 History Cyanocobalamin (Vitamin B-12) 1,000 mcg PO DAILY 08/28/18 09/11/18 History [Vitamin B-12] Mometasone Furoate [Elocon] 1 applic TOPICAL DAILY PRN 08/28/18 09/11/18 History Mometasone/Formoterol [Dulera 200 1 puff INHALATION RT-DAILY 08/28/18 09/11/18 History Mcg/5 Mcg Inhaler] Omeprazole [PriLOSEC] 20 mg PO DAILY 08/28/18 09/11/18 History Calcium Carbonate [Tums] 500 mg PO QID PRN 09/11/18 09/11/18 History EPINEPHrine [Epipen 2-Jed] 0.3 mg IM ONCE PRN 09/11/18 09/11/18 History Ibuprofen [Advil] 200 mg PO Q6HR PRN 09/11/18 09/11/18 History Allergies Allergy/AdvReac Type Severity Reaction Status Date / Time cat dander Allergy Dyspnea Verified 09/11/18 20:36 dog dander Allergy Dyspnea Verified 09/11/18 20:36 Physical Exam Vitals: Vital Signs Temp Pulse Pulse Pulse Resp BP BP 09/12/18 07:15 98.2 F 70 18 146/82 09/12/18 03:55 98.2 F 69 16 123/75 09/12/18 03:21 16 09/12/18 00:00 16 09/11/18 23:53 97.9 F 60 16 141/76 09/11/18 20:00 16 09/11/18 19:54 98.1 F 73 16 167/95 09/11/18 18:41 98.5 F 76 18 164/96 09/11/18 16:53 100 18 146/93 09/11/18 16:07 82 18 151/85 09/11/18 15:24 89 18 161/93 09/11/18 14:32 104 H 09/11/18 14:08 98.5 F 109 H 18 181/94 Pulse Ox 09/12/18 07:15 97 09/12/18 03:55 98 09/12/18 03:21 09/12/18 00:00 09/11/18 23:53 98 09/11/18 20:00 09/11/18 19:54 97 09/11/18 18:41 98 09/11/18 16:53 97 09/11/18 16:07 98 09/11/18 15:24 96 09/11/18 14:32 09/11/18 14:08 99 Intake and Output 09/11/18 09/12/18 09/12/18 22:59 06:59 14:59 Other: # Voids 1 Weight 75.3 kg Results 09/11/18 14:34 09/11/18 14:34 Cardiac Enzymes 09/11/18 09/11/18 09/11/18 Range/Units 14:34 14:34 20:58 AST 33 (17-59) U/L CK-MB (CK-2) 1.0 0.9 (0.0-2.4) ng/mL Troponin I <0.012 <0.012 (0.000-0.034) ng/mL 09/12/18 Range/Units 02:40 AST (17-59) U/L CK-MB (CK-2) 0.7 (0.0-2.4) ng/mL Troponin I <0.012 (0.000-0.034) ng/mL Coagulation 09/11/18 Range/Units 14:34 PT 10.3 (9.0-12.0) sec APTT 23.3 (22.0-30.0) sec Lipids 09/12/18 Range/Units 02:40 Triglycerides 70 (<150) mg/dL Cholesterol 153 (<200) mg/dL HDL Cholesterol 56 (40-60) mg/dL CBC 09/11/18 Range/Units 14:34 WBC 7.8 (3.8-10.6) k/uL RBC 4.83 (4.30-5.90) m/uL Hgb 14.3 (13.0-17.5) gm/dL Hct 44.0 (39.0-53.0) % Plt Count 232 (150-450) k/uL Comprehensive Metabolic Panel 09/11/18 Range/Units 14:34 Sodium 141 (137-145) mmol/L Potassium 4.3 (3.5-5.1) mmol/L Chloride 108 H (98-107) mmol/L Carbon Dioxide 23 (22-30) mmol/L BUN 18 (9-20) mg/dL Creatinine 0.93 (0.66-1.25) mg/dL Glucose 143 H (74-99) mg/dL Calcium 9.9 (8.4-10.2) mg/dL AST 33 (17-59) U/L ALT 31 (21-72) U/L Alkaline Phosphatase 70 (38-126) U/L Total Protein 7.7 (6.3-8.2) g/dL Albumin 4.4 (3.5-5.0) g/dL Current Medications Generic Name Dose Route Start Last Admin Trade Name Freq PRN Reason Stop Dose Admin Albuterol Sulfate 2.5 mg 09/11/18 18:05 Ventolin Nebulized INHALATION RT-Q6H PRN Shortness Of Breath Aspirin 325 mg 09/12/18 09:00 Aspirin PO DAILY [facility] Budesonide/Formoterol Fumarate 2 puff 09/12/18 08:00 09/12/18 07:43 Symbicort 160-4.5 Mcg Inhaler INHALATION 2 puff RT-BID MARITA Administration Epinephrine HCl 0.3 mg 09/11/18 18:05 Adrenalin IM ONCE PRN Anaphylaxis Ibuprofen 200 mg 09/11/18 18:05 Advil PO Q6HR PRN Moderate Pain Nitroglycerin 0.4 mg 09/11/18 16:43 Nitrostat SUBLINGUAL Q5M PRN Chest Pain Pantoprazole Sodium 40 mg 09/12/18 07:30 Protonix PO AC-BRKFST [facility] Triamcinolone Acetonide 1 applic 09/11/18 18:05 Kenalog TOPICAL DAILY PRN ECZEMA Intake and Output 09/11/18 09/12/18 09/12/18 22:59 06:59 14:59 Other: # Voids 1 Weight 75.3 kg 09/11/18 14:34 09/11/18 14:34
--- NOTE | 2018-09-12 10:24 | ECHOF ---
Referral Reason:htn, cp MEASUREMENTS -------- HEIGHT: 165.1 cm WEIGHT: 75.3 kg BP: RVIDd: 2.8 cm (< 3.3) IVSd: 1.0 cm (0.6 - 1.1) LVIDd: 4.8 cm (3.9 - 5.3) LVPWd: 1.2 cm (0.6 - 1.1) IVSs: 1.3 cm LVIDs: 2.7 cm LVPWs: 1.3 cm LAESV Index (A-L): 18.27 ml/m Ao Diam: 2.7 cm (2.0 - 3.7) AV Cusp: 1.7 cm (1.5 - 2.6) LA Diam: 3.5 cm (2.7 - 3.8) MV EXCURSION: 11.106 mm (> 18.000) MV EF SLOPE: 75 mm/s (70 - 150) EPSS: 0.7 cm MV E Federico: 0.82 m/s MV DecT: 222 ms MV A Federico: 0.98 m/s MV E/A Ratio: 0.84 AR PHT: 461 ms RAP: 5.00 mmHg RVSP: 25.35 mmHg FINDINGS -------- Sinus rhythm. This was a technically good study. The left ventricular size is normal. Left ventricular wall thickness is normal. Overall left vent ricular systolic function is normal with, an EF between 55 - 60 %. The right ventricle is normal in size. The left atrium is normal in size. The right atrium is normal in size. The aortic valve is trileaflet and appears structurally normal. Trace amount of aortic regurgitatio n. The mitral valve leaflets are mildly thickened. There is trace mitral regurgitation. Trace tricuspid regurgitation present. The right ventricular systolic pressure, as measured by Dopp ler, is 25.35mmHg. Pulmonic valve appears structurally normal. The aortic root size is normal. Normal inferior vena cava with normal inspiratory collapse consistent with estimated right atrial pre ssure of 5 mmHg. The pericardium is normal. CONCLUSIONS -------- 1. Sinus rhythm. 2. This was a technically good study. 3. The left ventricular size is normal. 4. Left ventricular wall thickness is normal. 5. Overall left ventricular systolic function is normal with, an EF between 55 - 60 %. 6. The right ventricle is normal in size. 7. The left atrium is normal in size. 8. The right atrium is normal in size. 9. The aortic valve is trileaflet and appears structurally normal. 10. Trace amount of aortic regurgitation. 11. The mitral valve leaflets are mildly thickened. 12. There is trace mitral regurgitation. 13. Trace tricuspid regurgitation present. 14. The right ventricular systolic pressure, as measured by Doppler, is 25.35mmHg. 15. Pulmonic valve appears structurally normal. 16. The aortic root size is normal. 17. Normal inferior vena cava with normal inspiratory collapse consistent with estimated right atrial pressure of 5 mmHg. 18. The pericardium is normal. GLOVE MAKER: Lizett Joseph RDCS
[2018-09-12 11:54] VITALS: PULSE 66; TEMP 98.3
[2018-09-12 15:35] VITALS: BP 171/89
--- NOTE | 2018-09-12 15:35 | P.DS ---
Providers Date of admission: 09/11/18 17:48 Attending physician: Woodrow Villasenor Consults: 09/11/18 16:43 Consult Physician Urgent Consulting Provider: Niraj Reynaga Consult Reason/Comments: Chest pain Do you want consulting provider notified?: Yes Primary care physician: Hanna Cirilo [facility] Course: Patient is admitted for chest pain rule out a concurrent syndromes patient underwent echocardiogram which did not show significant abnormality patient will be discharged today. We shouldn't blood pressure is on and off for elevated a bit patient has occasions where his blood pressure is only 120 systolic because of which I do not believe he'll need high doses of medications for his blood pressure and patient was discharged and 10 mg of lisinopril. Patient is bit anxious, His Blood Pressure Goes up. I Do Not Believe Increasing the Dose of COREY Inhibitor or Adding Another Medication Will Be Helpful. Patient Will Be Discharged on 10 Mg of Lisinopril. Follow up with his PCP As an Outpatient. PHYSICAL EXAMINATION: GENERAL: The patient is alert and oriented x3, not in any acute distress. Well developed, well nourished. HEENT: Pupils are round and equally reacting to light. EOMI. No scleral icterus. No conjunctival pallor. Normocephalic, atraumatic. No pharyngeal erythema. No thyromegaly. CARDIOVASCULAR: S1 and S2 present. No murmurs, rubs, or gallops. PULMONARY: Chest is clear to auscultation, no wheezing or crackles. ABDOMEN: Soft, nontender, nondistended, normoactive bowel sounds. No palpable organomegaly. MUSCULOSKELETAL: No joint swelling or deformity. EXTREMITIES: No cyanosis, clubbing, or pedal edema. NEUROLOGICAL: Gross neurological examination did not reveal any focal deficits. SKIN: No rashes. The rest of other chronic medical problems hospitalization course please refer to my dictation of which we from yesterday Patient Condition at Discharge: Stable Plan - Discharge Summary New Discharge Prescriptions: New Lisinopril [Prinivil] 10 mg PO DAILY #30 tab No Action Cyanocobalamin (Vitamin B-12) [Vitamin B-12] 1,000 mcg PO DAILY Omeprazole [PriLOSEC] 20 mg PO DAILY Cholecalciferol [Vitamin D3] 1,000 unit PO DAILY Albuterol Inhaler [Ventolin Hfa Inhaler] 1 - 2 puff INHALATION RT-Q6H PRN PRN Reason: Shortness Of Breath Mometasone/Formoterol [Dulera 200 Mcg/5 Mcg Inhaler] 1 puff INHALATION RT- DAILY Mometasone Furoate [Elocon] 1 applic TOPICAL DAILY PRN PRN Reason: ECZEMA Ibuprofen [Advil] 200 mg PO Q6HR PRN PRN Reason: Pain EPINEPHrine [Epipen 2-Jed] 0.3 mg IM ONCE PRN PRN Reason: Anaphylaxis Calcium Carbonate [Tums] 500 mg PO QID PRN PRN Reason: GERD Discharge Medication List Albuterol Inhaler [Ventolin Hfa Inhaler] 1 - 2 puff INHALATION RT-Q6H PRN [History] Cholecalciferol [Vitamin D3] 1,000 unit PO DAILY 08/28/18 [History] Cyanocobalamin (Vitamin B-12) [Vitamin B-12] 1,000 mcg PO DAILY 08/28/18 [ History] Mometasone Furoate [Elocon] 1 applic TOPICAL DAILY PRN 08/28/18 [History] Mometasone/Formoterol [Dulera 200 Mcg/5 Mcg Inhaler] 1 puff INHALATION RT-DAILY 08/28/18 [History] Omeprazole [PriLOSEC] 20 mg PO DAILY 08/28/18 [History] Calcium Carbonate [Tums] 500 mg PO QID PRN 09/11/18 [History] EPINEPHrine [Epipen 2-Jed] 0.3 mg IM ONCE PRN 09/11/18 [History] Ibuprofen [Advil] 200 mg PO Q6HR PRN 09/11/18 [History] Lisinopril [Prinivil] 10 mg PO DAILY #30 tab 09/12/18 [Rx] Follow up Appointment(s)/Referral(s): Hanna Kerr MD [Primary Care Provider] - 3 Days
== END 2018-09-12 16:16 | disposition home or self-care (01) ==
LOC: EC 14:04 → 1SOBS 17:48
PROVIDERS: ADMIT Internal Medicine; ATTEND Internal Medicine
DX: R07.89 Other chest pain (principal); F41.9 Anxiety disorder, unspecified; R03.0 Elevated blood-pressure reading, without diagnosis of hypertension; R00.0 Tachycardia, unspecified; M79.603 Pain in arm, unspecified; R53.83 Other fatigue; R51 Headache; R94.31 Abnormal electrocardiogram [ECG] [EKG]; J45.909 Unspecified asthma, uncomplicated; I48.91 Unspecified atrial fibrillation; K21.9 Gastro-esophageal reflux disease without esophagitis; K22.70 Barrett's esophagus without dysplasia; Z79.51 Long term (current) use of inhaled steroids; Z79.899 Other long term (current) drug therapy; Z91.048 Other nonmedicinal substance allergy status; Z87.891 Personal history of nicotine dependence; Z82.49 Family history of ischemic heart disease and other diseases of the circulatory system; Z80.8 Family history of malignant neoplasm of other organs or systems
CPT/HCPCS: 99285; 36415; 94640; 93005; 93306; 85379; 80061; 80053; 84443; 82550 ×2; 82553 ×2; 84484 ×2; 85025; 85610; 85730; 81001; 71046; G0378 ×2

== ENCOUNTER → 2018-09-28 | Outpatient (CLI) | payer MEDICARE | END | disposition home or self-care (01) | LOC: RADECHMAIN 12:30 | PROVIDERS: ATTEND Family Medicine | DX: R00.8 Other abnormalities of heart beat (principal) | CPT/HCPCS: 93270; 93271 ==

== ENCOUNTER → 2019-03-22 | Outpatient (CLI) | payer MEDICARE ==
--- NOTE | 2019-04-10 10:02 | EM ---
EVENT MONITOR A 14-day event monitor. DATE OF SERVICE: March 22, 2019 The patient was monitored for 14 days. The baseline rhythm appeared to be a sinus mechanism. The patient did have multiple episodes of sinus bradycardia with a heart rate in the 40s. During these episodes, the patient was asymptomatic. No evidence of any tachyarrhythmia noted. No evidence of any advanced AV block. No evidence of sinus pause or sinus arrest. CONCLUSION: 1. This is a 14-day event monitor. 2. Sinus rhythm as a baseline mechanism. 3. Multiple episodes of sinus bradycardia with a heart rate in the 40s and the patient was asymptomatic during these episodes. 4. No evidence of any sinus pause or sinus arrest. 5. The patient reported no . MMODL / IJN: [id number] /
== END | disposition home or self-care (01) ==
LOC: RADECHMAIN 12:23
PROVIDERS: ATTEND Family Medicine
DX: R00.1 Bradycardia, unspecified (principal)
CPT/HCPCS: 93270

== ENCOUNTER → 2023-06-08 | Outpatient (CLI) | payer MEDICARE ==
--- NOTE | 2023-06-10 18:02 | CT ---
EXAMINATION TYPE: CT abdomen pelvis wo con DATE OF EXAM: 06/08/2023 COMPARISON: 07/07/2016 HISTORY: 72-year-old male R10.9, specified abdominal pain, flank pain CT DLP: 529.3 mGycm. Automated exposure control for dose reduction was used. TECHNIQUE: Contiguous axial scanning of the abdomen and pelvis without IV contrast. Coronal and sagit manny reconstructions performed. FINDINGS: The heart is normal size with trace anterior basilar pericardial effusion measuring 1 cm thick. Lung bases clear without pleural effusion. There is a small to moderate-sized hiatal hernia. There is mildly diminished attenuation of the liver parenchyma. Otherwise, noncontrast appearance of the liver, gallbladder, adrenal glands, spleen, and mildly atrophic pancreas show no gross adenopathy . There are a couple punctate 2 mm nonobstructive right renal calculi. There is no hydronephrosis on ei ther side. No dilated small bowel, free fluid, or free air. No mesenteric or retroperitoneal lymphadenopathy. Small fatty umbilical hernia measuring 2.3 cm. Normal appendix. Mild stool burden. No pericolonic inflammatory change. Mild to moderate circumferential bladder wall thickening. Prostate gland mildly enlarged at 4.4 cm wi de. Some central prostatic calcifications noted. No abnormal fluid collection in the pelvis or pelvic lymphadenopathy. Bones: Mild degenerative disc disease throughout. Facet arthropathy mid to lower lumbar spine. Degene rative change at the right greater than left hips. IMPRESSION: 1. A couple punctate 2 mm nonobstructive right renal calculi. No hydronephrosis on either side. 2. Mild to moderate circumferential bladder wall thickening may be chronic for the patient. Correlat e to exclude cystitis. 3. Mild prostatomegaly and 4.4 cm wide. 4. Small to moderate-sized hiatal hernia and a small fatty umbilical hernia. 5. Mild hepatic steatosis.
== END | disposition home or self-care (01) ==
LOC: RADCTMAIN 15:13
PROVIDERS: ATTEND Family Medicine
DX: N20.0 Calculus of kidney (principal); N40.0 Benign prostatic hyperplasia without lower urinary tract symptoms; K44.9 Diaphragmatic hernia without obstruction or gangrene; K42.9 Umbilical hernia without obstruction or gangrene; K76.0 Fatty (change of) liver, not elsewhere classified
CPT/HCPCS: 74176

== ENCOUNTER 2023-09-05 14:23 | Emergency (ER) | payer MEDICARE ==
--- NOTE | 2023-09-05 14:42 | ED ---
General Adult HPI - General Source: patient, RN notes reviewed Mode of arrival: ambulatory Limitations: no limitations <Sowmya Kennedy - Last Filed: 09/05/23 14:39> <Dick Ramirez - Last Filed: 09/05/23 19:12> - General Chief complaint: Back Pain/Injury Stated complaint: Pain Time Seen by Provider: 09/05/23 14:38 - History of Present Illness Initial comments: This is a 72-year-old male who presents to the emergency department for pain. States that he is prone to frequent UTIs and has been treated twice recently. Most recently finished Bactrim yesterday. In the midst of the UTIs, he was having pain occurring in a random locations all over his body, including his arms, chest, back, and groin area. States that he continues to test positive for UTIs, but is not having any relief from the pain. (Sowmya Kennedy) Dictation was produced using [employer] dictation software. please excuse any grammatical, word or spelling errors. Chief Complaint: 72-year-old male presents with abdominal pain History of Present Illness: Patient is 72-year-old male he has past medical history of polymyalgia rheumatica along with ur frequent UTIs. States he is here in the hospital for several weeks of pain. States that the pain is sharp and random affecting anywhere in his thorax and abdomen and back. States that he gets these symptoms that last for minutes. He feels like the symptoms sug gest that he is having a urinary tract infection. Denies any nausea. No vomiting. Has history of abdominal wall hernia. No other abdominal surgical history. No fever or constitutional symptoms. The ROS documented in this emergency department record has been reviewed and confirmed by me. Those systems with pertinent positive or negative responses have been documented in the HPI. All other systems are other negative and/or noncontributory. (Dick Ramirez) - Related Data Home Medications Medication Instructions Recorded Confirmed Albuterol Inhaler [Ventolin Hfa 1 - 2 puff INHALATION RT-Q6H PRN 08/28/18 09/11/18 Inhaler] Cholecalciferol [Vitamin D3] 1,000 unit PO DAILY 08/28/18 09/11/18 Cyanocobalamin (Vitamin B-12) 1,000 mcg PO DAILY 08/28/18 09/11/18 [Vitamin B-12] Mometasone Furoate [Elocon] 1 applic TOPICAL DAILY PRN 08/28/18 09/11/18 Mometasone/Formoterol [Dulera 200 1 puff INHALATION RT-DAILY 08/28/18 09/11/18 Mcg/5 Mcg Inhaler] Omeprazole [PriLOSEC] 20 mg PO DAILY 08/28/18 09/11/18 Calcium Carbonate [Tums] 500 mg PO QID PRN 09/11/18 09/11/18 EPINEPHrine [Epipen 2-Jed] 0.3 mg IM ONCE PRN 09/11/18 09/11/18 Ibuprofen [Advil] 200 mg PO Q6HR PRN 09/11/18 09/11/18 Previous Rx's Medication Instructions Recorded lisinopriL [Prinivil] 10 mg PO DAILY #30 tab 09/12/18 Allergies Allergy/AdvReac Type Severity Reaction Status Date / Time cat dander Allergy Dyspnea Verified 09/05/23 15:10 dog dander Allergy Dyspnea Verified 09/05/23 15:10 Milk Containing Products Allergy Abdominal Verified 09/05/23 15:10 (Dairy) Pain [Dairy] Review of Systems ROS Other: All systems not noted in ROS Statement are negative. <Sowmya Kennedy - Last Filed: 09/05/23 14:39> ROS Other: All systems not noted in ROS Statement are negative. <Dick Ramirez - Last Filed: 09/05/23 19:12> ROS Statement: Those systems with pertinent positive or pertinent negative responses have been documented in the HPI. 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 History of Any Multi-Drug Resistant Organisms: None Reported Past Surgical History: Hernia Repair Past Anesthesia/Blood Transfusion Reactions: No Reported Reaction Past Psychological History: No Psychological Hx Reported Past Alcohol Use History: None Reported Past Drug Use History: None Reported - Past Family History Father Family Medical History: Coronary Artery Disease (CAD) Additional Family Medical History / Comment(s): twisted bowel surg, circulation issues Mother Family Medical History: Cancer, Hypertension Additional Family Medical History / Comment(s): skin ca <Sowmya Kennedy - Last Filed: 09/05/23 14:39> General Exam <Sowmya Kennedy - Last Filed: 09/05/23 14:39> <Dick Ramirez - Last Filed: 09/05/23 19:12> - General Exam Comments Initial Comments: Visual Physical Exam Vital signs reviewed General: Well-appearing, nontoxic, no acute distress. Head: Normocephalic, atraumatic Eyes: PERRLA, EOMI ENT: Airway patent Chest: Nonlabored breathing Skin: No visual rash, normal skin tone Neuro: Alert and oriented 3 Musculoskeletal: No gross abnormalities (Sowmya Kennedy) PHYSICAL EXAM: General Impression: Alert and oriented x3, not in acute distress HEENT: Normocephalic atraumatic, extra-ocular movements intact, pupils equal and reactive to light bilaterally, mucous membranes moist. Cardiovascular: Heart regular rate and rhythm Chest: Able to complete full sentences, no retractions, no tachypnea Abdomen: abdomen soft, non-tender, non-distended, no organomegaly Musculoskeletal: Pulses present and equal in all extremities, no peripheral edema Motor: no focal deficits noted Neurological: CN II-XII grossly intact, no focal motor or sensory deficits noted Skin: Intact with no visualized rashes Psych: Normal affect and mood (Dick Ramirez) Course Vital Signs 09/05/23 09/05/23 15:07 18:16 Temperature 98.1 F Pulse Rate 82 71 Respiratory 20 18 Rate Blood Pressure 146/74 145/87 O2 Sat by Pulse 97 98 Oximetry Medical Decision Making <Sowmya Kennedy - Last Filed: 09/05/23 14:39> - Lab Data Result diagrams: 09/05/23 18:22 09/05/23 18:22 <Dick Ramirez - Last Filed: 09/05/23 19:12> - Medical Decision Making I performed the QuickNote portion of this chart. Signed Sowmya Kennedy PA-C. (Sowmya Kennedy) Was pt. sent in by a medical professional or institution ([facility], [employer], urgent care, hospital, or retirement...) When possible be specific @ -No Did you speak to anyone other than the patient for history (EMS, parent, family, police, friend...)? What history was obtained from this source @ -No Did you review nursing and triage notes (agree or disagree)? Why? @ -I reviewed and agree with nursing and triage notes Were old charts reviewed (outside hosp., previous admission, EMS record, old EKG, old radiological studies, urgent care reports/EKG's, retirement records)? Report findings @ -No old charts were reviewed Differential Diagnosis (chest pain, altered mental status, abdominal pain women, abdominal pain men, vaginal bleeding, musculoskeletal, weakness, fever, dyspnea, syncope, headache, dizziness, GI bleed, back pain, seizure, CVA, palpatations, mental health)? @ -Differential Abdominal Pain Men: Appendicitis, cholecystitis, diverticulosis, ischemic bowel, pancreatitis, hepatitis, UTI, gastroenteritis, AAA, incarcerated hernia, bowel obstruction, constipation, inflammatory bowel, hepatitis, peptic ulcer disease, splenic i nfarction, perforated viscus, testicular torsion, this is not meant to be an all-inclusive list EKG interpreted by me (3pts min.). @ -None done X-rays interpreted by me (1pt min.). @ -Abdominal x-rays unremarkable for acute processes CT interpreted by me (1pt min.). @ -None done U/S interpreted by me (1pt. min.). @ -None done What testing was considered but not performed or refused? (CT, X-rays, U/S, labs)? Why? @ -None What meds were considered but not given or refused? Why? @ -None Did you discuss the management of the patient with other professionals (professionals i.e. , PA, [employer], lab, RT, psych nurse, social work specialist, veterinary assistant, teacher, bsa/aml compliance officer, pillowcase folder)? Give summary @ -No Was smoking cessation discussed for >3mins.? @ -No Was critical care preformed (if so, how long)? @ -No Were there social determinants of health that impacted care today? How? (Homelessness, low income, unemployed, alcoholism, drug addiction, transportation, low edu. Level, literacy, decrease access to med. care, prison, rehab)? @ -No Was there de-escalation of care discussed even if they declined (Discuss DNR or withdrawal of care, Hospice)? DNR status @ -No What co-morbidities impacted this encounter? (DM, HTN, Smoking, COPD, CAD, Cancer, CVA, ARF, Chemo, Hep., AIDS, mental health diagnosis, sleep apnea, morbid obesity)? @ -None Was patient admitted / discharged? Hospital course, mention meds given and route, prescriptions, significant lab abnormalities, going to OR and other per tinent info. @ -72-year-old male presents with atypical thoracic and abdominal pain. Symptoms are very strange. He is asymptomatic at the bedside. Vital signs stable. Laboratory evaluation is unremarkable. Urinalysis negative. Viral testing negative. Abdominal x-ray negative. Patient reevaluated bedside at 7:12 PM found to be in stable condition. At this point patient has no high risk features. Patient is advised to follow-up with his primary care doctor. Undiagnosed new problem with uncertain prognosis? @ -No Drug Therapy requiring intensive monitoring for toxicity (Heparin, Nitro, Insulin, Cardizem)? @ -No Were any procedures done? @ -No Diagnosis/symptom? Acute, or Chronic, or Acute on Chronic? Uncomplicated (without systemic symptoms) or Complicated (systemic symptoms)? @ -Abdominal pain, no high risk features Side effects of treatment? @ -No Exacerbation, Progression, or Severe Exacerbation? @ -No Poses a threat to life or bodily function? How? (Chest pain, [place], MT, pneumonia, PE, COPD, DKA, ARF, appy, cholecystitis, CVA, Diverticulitis, Homicidal, Suicidal, threat to staff... and all critical care pts) @ -No (Dick Ramirez) - Lab Data Lab Results 09/05/23 09/05/23 09/05/23 Range/Units 15:12 15:12 18:22 WBC 8.2 (3.8-10.6) k/uL RBC 4.56 (4.30-5.90) m/uL Hgb 14.1 (13.0-17.5) gm/dL Hct 41.2 (39.0-53.0) % MCV 90.2 (80.0-100.0) fL MCH 31.0 (25.0-35.0) pg MCHC 34.3 (31.0-37.0) g/dL RDW 12.8 (11.5-15.5) % Plt Count 217 (150-450) k/uL MPV 7.6 Neutrophils % 79 % Lymphocytes % 15 % Monocytes % 4 % Eosinophils % 1 % Basophils % 0 % Neutrophils # 6.4 (1.3-7.7) k/uL Lymphocytes # 1.2 (1.0-4.8) k/uL Monocytes # 0.3 (0-1.0) k/uL Eosinophils # 0.1 (0-0.7) k/uL Basophils # 0.0 (0-0.2) k/uL Sodium (137-145) mmol/L Potassium (3.5-5.1) mmol/L Chloride (98-107) mmol/L Carbon Dioxide (22-30) mmol/L Anion Gap mmol/L BUN (9-20) mg/dL Creatinine (0.66-1.25) mg/dL Est GFR (CKD-EPI)AfAm (>60 ml/min/1.73 sqM) Est GFR (CKD-EPI)NonAf (>60 ml/min/1.73 sqM) Glucose (74-99) mg/dL Calcium (8.4-10.2) mg/dL Total Bilirubin (0.2-1.3) mg/dL AST (17-59) U/L ALT (4-49) U/L Alkaline Phosphatase (38-126) U/L Total Protein (6.3-8.2) g/dL Albumin (3.5-5.0) g/dL Urine Color Light Yellow Urine Appearance Clear (Clear) Urine pH 6.0 (5.0-8.0) Ur Specific [place] 1.016 (1.001-1.035) Urine Protein Negative (Negative) Urine Glucose (UA) Negative (Negative) Urine Ketones Negative (Negative) Urine Blood Small H (Negative) Urine Nitrite Negative (Negative) Urine Bilirubin Negative (Negative) Urine Urobilinogen <2.0 (<2.0) mg/dL Ur Leukocyte Esterase Negative (Negative) Urine RBC 5 (0-5) /hpf Urine WBC <1 (0-5) /hpf Urine Mucus Rare H (None) /hpf Influenza Type A (PCR) Not Detected (Not Detectd) Influenza Type B (PCR) Not Detected (Not Detectd) RSV (PCR) Not Detected (Not Detectd) SARS-CoV-2 (PCR) Not Detected (Not Detectd) 09/05/23 Range/Units 18:22 WBC (3.8-10.6) k/uL RBC (4.30-5.90) m/uL Hgb (13.0-17.5) gm/dL Hct (39.0-53.0) % MCV (80.0-100.0) fL MCH (25.0-35.0) pg MCHC (31.0-37.0) g/dL RDW (11.5-15.5) % Plt Count (150-450) k/uL MPV Neutrophils % % Lymphocytes % % Monocytes % % Eosinophils % % Basophils % % Neutrophils # (1.3-7.7) k/uL Lymphocytes # (1.0-4.8) k/uL Monocytes # (0-1.0) k/uL Eosinophils # (0-0.7) k/uL Basophils # (0-0.2) k/uL Sodium 137 (137-145) mmol/L Potassium 4.6 (3.5-5.1) mmol/L Chloride 107 (98-107) mmol/L Carbon Dioxide 21 L (22-30) mmol/L Anion Gap 9 mmol/L BUN 17 (9-20) mg/dL Creatinine 1.07 (0.66-1.25) mg/dL Est GFR (CKD-EPI)AfAm 80 (>60 ml/min/1.73 sqM) Est GFR (CKD-EPI)NonAf 69 (>60 ml/min/1.73 sqM) Glucose 102 H (74-99) mg/dL Calcium 9.7 (8.4-10.2) mg/dL Total Bilirubin 0.4 (0.2-1.3) mg/dL AST 31 (17-59) U/L ALT 30 (4-49) U/L Alkaline Phosphatase 69 (38-126) U/L Total Protein 7.8 (6.3-8.2) g/dL Albumin 4.5 (3.5-5.0) g/dL Urine Color Urine Appearance (Clear) Urine pH (5.0-8.0) Ur Specific [place] (1.001-1.035) Urine Protein (Negative) Urine Glucose (UA) (Negative) Urine Ketones (Negative) Urine Blood (Negative) Urine Nitrite (Negative) Urine Bilirubin (Negative) Urine Urobilinogen (<2.0) mg/dL Ur Leukocyte Esterase (Negative) Urine RBC (0-5) /hpf Urine WBC (0-5) /hpf Urine Mucus (None) /hpf Influenza Type A (PCR) (Not Detectd) Influenza Type B (PCR) (Not Detectd) RSV (PCR) (Not Detectd) SARS-CoV-2 (PCR) (Not Detectd) Disposition <Sowmya Kennedy - Last Filed: 09/05/23 14:39> Is patient prescribed a controlled substance at d/c from ED?: No Time of Disposition: 19:12 <Dick Ramirez - Last Filed: 09/05/23 19:12> Clinical Impression: Abdominal pain Disposition: HOME SELF-CARE Condition: Good Instructions (If sedation given, give patient instructions): Abdominal Pain (ED) Referrals: Hanna Kerr MD [Primary Care Provider] - 1-2 days
[2023-09-05 18:17] VITALS: RESP 18
[2023-09-05 18:33] LABS: Basophils % (A) 0 %; Eosinophils # (A) 0.1 k/uL (0-0.7); Eosinophils % (A) 1 %; HCT 41.2 % (39.0-53.0); HGB 14.1 gm/dL (13.0-17.5); Lymphocytes # (A) 1.2 k/uL (1.0-4.8); Lymphocytes % (A) 15 %; MCHC 34.3 g/dL (31.0-37.0); MCV 90.2 fL (80.0-100.0); Mean Platelet Volume 7.6; Monocytes # (A) 0.3 k/uL (0-1.0); Monocytes % (A) 4 %; Neutrophils # (A) 6.4 k/uL (1.3-7.7); Neutrophils % (A) 79 %; Platelet Count 217 k/uL (150-450); RBC 4.56 m/uL (4.30-5.90); RDW 12.8 % (11.5-15.5); WBC 8.2 k/uL (3.8-10.6)
[2023-09-05 18:35] LABS: Appearance,Urine Clear (Clear); Bilirubin,Urine Negative (Negative); Blood,Urine Small (Negative); Color,Urine Light Yellow; Glucose,Urine (UA) Negative (Negative); Ketones,Urine Negative (Negative); Leukocyte Esterase,Urine Negative (Negative); Mucus,Urine Rare /hpf; Nitrite,Urine Negative (Negative); Protein,Urine Negative (Negative); RBC,Urine 5 /hpf (0-5); Specific Gravity,Urine 1.016 (1.001-1.035); Urobilinogen,Urine <2.0 mg/dL (<2.0); WBC,Urine <1 /hpf (0-5)
[2023-09-05 18:44] LABS: ALT 30 U/L (4-49); AST 31 U/L (17-59); African American GFR (CKD) 80 (>60 ml/min/1.73 sqM); Albumin 4.5 g/dL (3.5-5.0); Alkaline Phosphatase 69 U/L (38-126); Anion Gap 9 mmol/L; Blood Urea Nitrogen 17 mg/dL (9-20); Calcium 9.7 mg/dL (8.4-10.2); Carbon Dioxide 21 mmol/L (22-30); Chloride 107 mmol/L (98-107); Glucose 102 mg/dL (74-99); Non-African American GFR(CKD) 69 (>60 ml/min/1.73 sqM); Potassium 4.6 mmol/L (3.5-5.1); Sodium 137 mmol/L (137-145); Total Bilirubin 0.4 mg/dL (0.2-1.3); Total Protein 7.8 g/dL (6.3-8.2)
--- NOTE | 2023-09-05 18:44 | XR ---
EXAMINATION TYPE: XR abdomen 1V DATE OF EXAM: 09/05/2023 6:32 PM CLINICAL INDICATION:Male, 72 years old with history of episodic pains; [facility] COMPARISON: 06/08/2023. TECHNIQUE: One radiographic view of the abdomen was obtained. FINDINGS: The bowel gas pattern is nonspecific without dilated loops of small or large bowel. There i s no evidence for organomegaly or pneumoperitoneum. The osseous structures are intact. No renal calc cornelio definitively visualized. No abnormal calcifications are present. Fecal material and gas are demo nstrated throughout the colon and rectum. Mild degeneration changes of the hips. Multilevel degenera tion changes spine with osteophyte formation disc space narrowing and facet joint arthropathy. IMPRESSION: Nonspecific bowel gas pattern without radiographic evidence for acute process.
[2023-09-05 19:58] VITALS: BP 145/77; PULSE 75; TEMP 98
== END 2023-09-05 19:34 | disposition home or self-care (01) ==
LOC: EC 14:23
DX: R10.9 Unspecified abdominal pain (principal); I48.91 Unspecified atrial fibrillation; J45.909 Unspecified asthma, uncomplicated; K21.9 Gastro-esophageal reflux disease without esophagitis; Z20.822 Contact with and (suspected) exposure to COVID-19; Z79.899 Other long term (current) drug therapy; Z88.8 Allergy status to other drugs, medicaments and biological substances; Z91.011 Allergy to milk products
CPT/HCPCS: 36415; 74018; 80053; 81001; 85025; 87636; 99283

== ENCOUNTER → 2024-05-07 | Outpatient (CLI) | payer MEDICARE ==
[2024-05-07 15:37] LABS: ALT 34 U/L (10-49); AST 27 U/L (14-35); Albumin 4.2 g/dL (3.8-4.9); Albumin/Globulin Ratio 1.56 Ratio (1.60-3.17); Alkaline Phosphatase 63 U/L (41-126); BUN/Creat Ratio 14.17 Ratio (12.00-20.00); Calcium 9.8 mg/dL (8.7-10.3); Carbon Dioxide 24.9 mmol/L (21.6-31.8); Chloride 103 mmol/L (96-109); Chol/HDL Ratio 2.53 Ratio; Globulin 2.7 g/dL (1.6-3.3); Glucose 91 mg/dL (70-110); LDL Cholesterol,Calculated 95.4 mg/dL (0.0-131.0); Potassium 4.4 mmol/L (3.5-5.5); Prostate Specific Antigen 0.82 ng/mL (0.000-6.500); Sodium 139 mmol/L (135-145); Total Bilirubin 0.4 mg/dL (0.3-1.2); Total Protein 6.9 g/dL (6.2-8.2); VLDL Calculation 11.02 mg/dL (5.00-40.00)
[2024-05-07 15:59] LABS: Basophils # (A) 0.03 X 10*3/uL (0.00-0.10); Basophils % (A) 0.4 %; Eosinophils # (A) 0.03 X 10*3/uL (0.04-0.35); Eosinophils % (A) 0.4 %; HCT 41.3 % (39.6-50.0); HGB 13.3 g/dL (13.0-17.0); Lymphocytes # (A) 1.55 X 10*3/uL (0.90-5.00); Lymphocytes % (A) 21.3 %; MCH 30.3 pg (27.0-32.0); MCHC 32.2 g/dL (32.0-37.0); MCV 94.1 FL (80.0-97.0); Mean Platelet Volume 10.7 FL (9.5-12.2); Monocytes # (A) 0.52 X 10*3/uL (0.20-1.00); Monocytes % (A) 7.1 %; NRBC Per 100 WBC 0 X 10*3/uL (0.00-0.01); Neutrophils # (A) 5.09 X 10*3/uL (1.80-7.70); Neutrophils % (A) 69.8 %; Platelet Count 181 X 10*3/uL (140-440); RBC 4.39 X 10*6/uL (4.40-5.60); RDW 13.4 % (11.5-14.5); WBC 7.29 X 10*3/uL (4.50-10.00)
[2024-05-07 17:11] LABS: Erythrocyte Sedimentation Rate 32 mm/Hr (0-20)
== END | disposition home or self-care (01) ==
LOC: LABWHC1 09:42
PROVIDERS: ATTEND Family Medicine
DX: Z12.5 Encounter for screening for malignant neoplasm of prostate (principal); Z13.29 Encounter for screening for other suspected endocrine disorder; Z13.220 Encounter for screening for lipoid disorders; M35.3 Polymyalgia rheumatica; I10 Essential (primary) hypertension; M25.50 Pain in unspecified joint
CPT/HCPCS: 36415; 80053; 80061; 82306; 84153; 84443; 85025; 85652

== ENCOUNTER → 2024-08-14 | Outpatient (CLI) | payer MEDICARE | LOC: CPPFTMAIN 15:44 | PROVIDERS: ATTEND Internal Medicine Critical Care Medicine | DX: J45.40 Moderate persistent asthma, uncomplicated (principal); Z91.011 Allergy to milk products; Z88.8 Allergy status to other drugs, medicaments and biological substances; Z87.891 Personal history of nicotine dependence | CPT/HCPCS: 94060; 94726; 94729 ==